=== PATIENT | male | born 1965 | race Caucasian/White ===

== ENCOUNTER 2022-11-19 07:09 | Day surgery (SDC) | payer MEDICAID ==
[~2022-11-19] VITALS: Ht 180.3 cm; Wt 138.8 kg
[~2022-11-19 07:09] MED LIST: APIX5TAB3 PO; DILT360C29 PO; FURO-150 PO; LISI20TA28 PO; LOP25T PO
[2022-11-19 07:30] VITALS: BP 123/73
[2022-11-19] MEDS ORDERED: normal saline 1000ml 1,000 ML IV PRN (07:30)
[2022-11-19] MEDS ORDERED: METO25TA6 (07:44)
[2022-11-19] MEDS ORDERED: APIX5TAB3 PO (07:46)
[2022-11-19] MEDS ORDERED: DILT360C29 (07:47)
[2022-11-19] MEDS ORDERED: DOCU-148 PO (07:49)
[2022-11-19] MEDS ORDERED: heparin sodium, porcine/PF 100unit/ml 5ML syringe ONE (08:47)
[2022-11-19] MEDS ORDERED: midazolam 1 mg/ML 2ml injection ONE (08:47)
[2022-11-19] MEDS ORDERED: fentaNYL/PF 50MCG/1 ML 2ML syringe ONE (08:48)
[2022-11-19] MEDS ORDERED: LIDOcaine 1% 30ml preserv. free vial ONE (08:48)
[2022-11-19] MEDS ORDERED: normal saline 1000ml 1,000 ML IV SCH (10:00)
[2022-11-19 11:14] VITALS: BP 135/75
[2022-11-19 11:29] VITALS: BP 143/75
[2022-11-19 11:44] VITALS: BP 139/70
[2022-11-19 11:59] VITALS: BP 138/66
[2022-11-19 12:14] VITALS: BP 142/72
== END 2022-11-19 12:20 | disposition home or self-care (01) ==
LOC: SSTAY O 07:09
PROVIDERS: ATTEND Radiology Diagnostic Radiology
DX: C34.31 Malignant neoplasm of lower lobe, right bronchus or lung (principal); G47.33 Obstructive sleep apnea (adult) (pediatric); I10 Essential (primary) hypertension; E66.01 Morbid (severe) obesity due to excess calories; Z68.41 Body mass index [BMI] 40.0-44.9, adult; F10.20 Alcohol dependence, uncomplicated; I48.91 Unspecified atrial fibrillation; Z88.2 Allergy status to sulfonamides; Z79.01 Long term (current) use of anticoagulants; Z79.899 Other long term (current) drug therapy; Z80.0 Family history of malignant neoplasm of digestive organs; Z82.49 Family history of ischemic heart disease and other diseases of the circulatory system
CPT/HCPCS: 36415; 36561; 76937; 77001; 85610; 99152; 99153; C1769; C1788; C1894; J1642; J2250; J3010; J3490; J7030; A4620